=== PATIENT | female | born 1990 | race Caucasian/White ===

== ENCOUNTER 2021-04-25 01:10 | Emergency (ER) | payer BC, MEDICAID, OTHER | END 2021-04-25 02:00 | disposition home or self-care (01) | LOC: CC.ED 01:10 | DX: U07.1 COVID-19 (principal); R04.2 Hemoptysis; Z88.0 Allergy status to penicillin; Z88.2 Allergy status to sulfonamides; Z88.1 Allergy status to other antibiotic agents | CPT/HCPCS: 99283 ==

== ENCOUNTER 2021-06-26 12:37 | Emergency (ER) | payer MEDICAID | END 2021-06-26 13:50 | disposition home or self-care (01) | LOC: CC.ED 12:37 | DX: M65.4 Radial styloid tenosynovitis [de Quervain] (principal); Z88.0 Allergy status to penicillin; Z88.2 Allergy status to sulfonamides; Z88.8 Allergy status to other drugs, medicaments and biological substances | CPT/HCPCS: 73110-RT; 99283 ==

== ENCOUNTER 2021-07-18 17:03 | Emergency (ER) | payer MEDICAID ==
[2021-07-18] MEDS: Take Home: Cephalexin 500 MG Cap, 4 Cap Pack PO ONE ×2 (17:31→17:40)
[2021-07-18] MEDS ORDERED: cefTRIAXone 1 GM Vial IM ONE (17:40)
[2021-07-18] MEDS ORDERED: Take Home: Ciprofloxacin 500 MG Tab, 2 Tab Pack PO ONE (17:44)
== END 2021-07-18 18:05 | disposition home or self-care (01) ==
LOC: CC.ED 17:03
DX: N39.0 Urinary tract infection, site not specified (principal); F41.9 Anxiety disorder, unspecified; F32.A Depression, unspecified; Z79.899 Other long term (current) drug therapy; Z88.0 Allergy status to penicillin; Z88.2 Allergy status to sulfonamides; Z88.8 Allergy status to other drugs, medicaments and biological substances
CPT/HCPCS: 81001; 87086; 87088; 87186; 96372; 99283; 99284; A9270-GY; J0696

== ENCOUNTER 2021-08-26 14:02 | Emergency (ER) | payer MEDICAID ==
[2021-08-26] MEDS ORDERED: cefTRIAXone 1 GM Vial ONE (14:32)
[2021-08-26] MEDS ORDERED: cefTRIAXone 1 GM in Sodium Chloride 0.9% 50 ML IV ONE (14:52)
[2021-08-26] MEDS ORDERED: cefTRIAXone 1 GM Vial IVPUSH SCH (15:00)
[2021-08-26 15:02] LABS: CHLORIDE,CL 107 mEq/L (98-106); SODIUM,NA 140 mEq/L (136-145)
== END 2021-08-26 15:30 | disposition home or self-care (01) ==
LOC: CC.ED 14:02
DX: G40.909 Epilepsy, unspecified, not intractable, without status epilepticus (principal); N39.0 Urinary tract infection, site not specified; Z88.0 Allergy status to penicillin; Z88.2 Allergy status to sulfonamides; Z88.1 Allergy status to other antibiotic agents; Z86.16 Personal history of COVID-19
CPT/HCPCS: 36415; 80053; 85025; 96374; 99284; 99284-25; J0696

== ENCOUNTER 2021-10-25 21:34 | Emergency (ER) | payer MEDICAID ==
[2021-10-25 22:07] LABS: POTASSIUM,POC 3.3 mmol/L (3.5-4.5)
[2021-10-25] MEDS: Potassium Chloride 10 MEQ Tab.ER PO ONE (22:28)
[2021-10-25] MEDS: Doxycycline 100 MG Tab PO ONE (22:28)
== END 2021-10-25 22:58 | disposition home or self-care (01) ==
LOC: CC.ED 21:34
DX: G40.909 Epilepsy, unspecified, not intractable, without status epilepticus (principal); N39.0 Urinary tract infection, site not specified; J45.909 Unspecified asthma, uncomplicated; Z86.16 Personal history of COVID-19; Z88.0 Allergy status to penicillin; Z88.8 Allergy status to other drugs, medicaments and biological substances; Z88.2 Allergy status to sulfonamides; Z79.899 Other long term (current) drug therapy
CPT/HCPCS: 36415; 80047; 81001; 85025; 99284; A9270-GY

== ENCOUNTER 2021-10-26 22:33 | Emergency (ER) | payer MEDICAID ==
[2021-10-26] MEDS: Sodium Chloride 0.9% 1,000 ML IV ONE (22:54)
[2021-10-26 23:19] LABS: CHLORIDE,CL 109 mEq/L (98-106); ESTIMATED GFR 88 mL/min (>=60); SODIUM,NA 140 mEq/L (136-145)
== END 2021-10-26 23:54 | disposition home or self-care (01) ==
LOC: CC.ED 22:33
DX: R56.9 Unspecified convulsions (principal); H66.91 Otitis media, unspecified, right ear; Z88.0 Allergy status to penicillin; Z88.8 Allergy status to other drugs, medicaments and biological substances; Z88.2 Allergy status to sulfonamides; Z86.16 Personal history of COVID-19
CPT/HCPCS: 80053; 80201; 85025; 86140; 96360; 99284; 99284-25; J7030

== ENCOUNTER 2021-10-27 13:07 | Observation (INO) | payer MEDICAID ==
[2021-10-27 14:23] LABS: AMPHETAMINES,URINE NEGATIVE (NEGATIVE); BARBITURATES,URINE NEGATIVE (NEGATIVE); BENZODIAZEPINE,URINE NEGATIVE (NEGATIVE); MDMA (ECSTASY), URINE NEGATIVE (NEGATIVE); METHADONE,URINE NEGATIVE (NEGATIVE); METHAMPHETAMINES,URINE NEGATIVE (NEGATIVE); OPIATES,URINE NEGATIVE (NEGATIVE); OXYCODONE,URINE NEGATIVE (NEGATIVE); PHENCYCLIDINE,URINE NEGATIVE (NEGATIVE); TCA,URINE NEGATIVE (NEGATIVE)
[2021-10-27] MEDS ORDERED: Sodium Chloride 0.9% 10 ML Syringe FLUSH PRN (14:25)
[2021-10-27] MEDS ORDERED: Albuterol 0.042% 1.25 MG/3 ML Neb Soln NEB PRN (18:14)
[2021-10-27] MEDS: cefTRIAXone 1 GM Vial IVPUSH SCH (18:57)
[2021-10-27] MEDS: Sodium Chloride 0.9% 1,000 ML IV SCH (19:44)
[2021-10-27] MEDS: Acetaminophen 325 MG Tab PO PRN (19:46)
[2021-10-27] MEDS: Mirtazapine 15 MG Tab PO SCH (20:08)
[2021-10-27] MEDS: Topiramate 100 MG Tab PO SCH (20:09)
[2021-10-27] MEDS ORDERED: Ondansetron 4 MG/2 ML SDV IVPUSH PRN (20:45)
[2021-10-28] MEDS: Sodium Chloride 0.9% 1,000 ML IV SCH ×3 (03:49→19:50)
[2021-10-28] MEDS ORDERED: Fluticasone NASAL Spray 16 GM Bottle NASBOTH SCH (08:00)
[2021-10-28] MEDS ORDERED: Non-Formulary Medication 1 Each (Cranberry [Cranberry] 500 MG Cap) PO SCH (08:00)
[2021-10-28] MEDS ORDERED: Montelukast 10 MG Tab ** OWN MED PO SCH ×2 (08:00)
[2021-10-28] MEDS ORDERED: Fluticasone NASAL Spray 16 GM Bottle NASBOTH PRN (08:45)
[2021-10-28] MEDS ORDERED: LACOSAMIDE 150 MG PO ONE (10:00)
[2021-10-28] MEDS: FLUOXETINE 40 MG PO SCH (10:12)
[2021-10-28] MEDS: Montelukast 10 MG Tab PO SCH (10:12)
[2021-10-28] MEDS: Topiramate 100 MG Tab PO SCH ×2 (10:12→19:36)
[2021-10-28] MEDS: Acetaminophen 325 MG Tab PO PRN (16:21)
[2021-10-28] MEDS: Mirtazapine 15 MG Tab PO SCH (19:36)
[2021-10-28] MEDS: Lacosamide 50 MG Tab PO SCH (19:36)
[2021-10-28] MEDS: cefTRIAXone 1 GM Vial IVPUSH SCH (19:46)
[2021-10-29] MEDS: Sodium Chloride 0.9% 1,000 ML IV SCH (03:38)
[2021-10-29] MEDS: FLUOXETINE 40 MG PO SCH (08:05)
[2021-10-29] MEDS: Topiramate 100 MG Tab PO SCH (08:06)
[2021-10-29] MEDS: Montelukast 10 MG Tab PO SCH (08:06)
[2021-10-29] MEDS: Lacosamide 50 MG Tab PO SCH (08:07)
[2021-10-29] MEDS: Acetaminophen 325 MG Tab PO PRN (08:10)
[2021-10-29] MEDS ORDERED: Potassium Chloride 10 MEQ Tab.ER PO ONE (10:34)
== END 2021-10-29 12:30 | disposition home or self-care (01) ==
LOC: CC.ED 13:07 → UNDOADMOB 15:15 → CC.MS 15:15
PROVIDERS: ADMIT Nurse Practitioner Family; ATTEND Nurse Practitioner Family
DX: G40.909 Epilepsy, unspecified, not intractable, without status epilepticus (principal); H66.91 Otitis media, unspecified, right ear; N30.01 Acute cystitis with hematuria; F41.9 Anxiety disorder, unspecified; F32.A Depression, unspecified; J45.909 Unspecified asthma, uncomplicated; Z20.822 Contact with and (suspected) exposure to COVID-19; Z88.0 Allergy status to penicillin; Z88.8 Allergy status to other drugs, medicaments and biological substances; Z88.2 Allergy status to sulfonamides; Z79.899 Other long term (current) drug therapy; Z86.16 Personal history of COVID-19
CPT/HCPCS: 36415; 70450; 71046; 80053; 80305-QW; 81001; 82550; 84484; 85025; 93005; 96374; 96375; 96376; 99217; 99220; 99225; 99285-25; A9270-GY; G0378; J0696; J2405; J3360; J7030; U0002

== ENCOUNTER 2021-11-17 13:48 | Emergency (ER) | payer MEDICAID | END 2021-11-17 14:49 | disposition home or self-care (01) | LOC: CC.ED 13:48 | DX: G40.909 Epilepsy, unspecified, not intractable, without status epilepticus (principal); J45.909 Unspecified asthma, uncomplicated; Z88.8 Allergy status to other drugs, medicaments and biological substances; Z88.0 Allergy status to penicillin; Z88.2 Allergy status to sulfonamides; Z79.899 Other long term (current) drug therapy; Z86.16 Personal history of COVID-19 | CPT/HCPCS: 99283; 99284 ==

== ENCOUNTER 2021-11-27 22:30 | Emergency (ER) | payer MEDICAID ==
[2021-11-27 23:29] LABS: CHLORIDE,CL 111 mEq/L (98-106); ESTIMATED GFR 77 mL/min (>=60); SODIUM,NA 146 mEq/L (136-145)
[2021-11-28] MEDS ORDERED: Take Home: Ciprofloxacin 500 MG Tab, 2 Tab Pack PO ONE (00:10)
== END 2021-11-28 00:27 | disposition home or self-care (01) ==
LOC: CC.ED 22:30
DX: G40.909 Epilepsy, unspecified, not intractable, without status epilepticus (principal); N30.00 Acute cystitis without hematuria; F41.9 Anxiety disorder, unspecified; F32.A Depression, unspecified
CPT/HCPCS: 36415; 80053; 80307; 82550; 83735; 85025; 99284; A9270-GY

== ENCOUNTER 2021-12-02 20:07 | Emergency (ER) | payer MEDICAID ==
[2021-12-02] MEDS ORDERED: Sodium Chloride 0.9% 1,000 ML IV ONE (20:32)
[2021-12-02 20:56] LABS: BARBITURATES,URINE NEGATIVE (NEGATIVE); BENZODIAZEPINE,URINE POSITIVE (NEGATIVE); MDMA (ECSTASY), URINE NEGATIVE (NEGATIVE); METHADONE,URINE NEGATIVE (NEGATIVE); METHAMPHETAMINES,URINE NEGATIVE (NEGATIVE); OPIATES,URINE NEGATIVE (NEGATIVE)
[2021-12-02 20:57] LABS: AMPHETAMINES,URINE POSITIVE (NEGATIVE); OXYCODONE,URINE NEGATIVE (NEGATIVE); PHENCYCLIDINE,URINE NEGATIVE (NEGATIVE); TCA,URINE NEGATIVE (NEGATIVE)
== END 2021-12-02 22:10 | disposition home or self-care (01) ==
LOC: CC.ED 20:07
DX: G40.909 Epilepsy, unspecified, not intractable, without status epilepticus (principal); J45.909 Unspecified asthma, uncomplicated; Z88.8 Allergy status to other drugs, medicaments and biological substances; Z88.0 Allergy status to penicillin; Z88.2 Allergy status to sulfonamides; Z79.899 Other long term (current) drug therapy; Z86.16 Personal history of COVID-19
CPT/HCPCS: 36415; 80053; 80305-QW; 81001; 83735; 85025; 96360; 99284; 99284-25; J7030

== ENCOUNTER 2021-12-03 14:30 | Emergency (ER) | payer MEDICAID | END 2021-12-03 17:40 | disposition home or self-care (01) | LOC: CC.ED 14:30 | DX: G40.409 Other generalized epilepsy and epileptic syndromes, not intractable, without status epilepticus (principal); Z88.0 Allergy status to penicillin; Z88.2 Allergy status to sulfonamides; Z88.8 Allergy status to other drugs, medicaments and biological substances; Z88.5 Allergy status to narcotic agent | CPT/HCPCS: 71046; 81001; 99284 ==

== ENCOUNTER 2022-01-09 19:45 | Emergency (ER) | payer MEDICAID ==
[2022-01-09] MEDS ORDERED: Midazolam 1 MG/ML 2 ML SDV ONE ×3 (20:34→20:36)
== END 2022-01-09 21:35 | disposition home or self-care (01) ==
LOC: CC.ED 19:45
DX: G40.909 Epilepsy, unspecified, not intractable, without status epilepticus (principal); Z88.0 Allergy status to penicillin; Z88.1 Allergy status to other antibiotic agents; Z88.8 Allergy status to other drugs, medicaments and biological substances; Z88.2 Allergy status to sulfonamides; Z86.16 Personal history of COVID-19
CPT/HCPCS: 36415; 80053; 82550; 83735; 84443; 85025; 99284

== ENCOUNTER 2022-01-31 21:25 | Emergency (ER) | payer MEDICAID | END 2022-01-31 21:53 | disposition home or self-care (01) | LOC: CC.ED 21:25 | DX: S61.211A Laceration without foreign body of left index finger without damage to nail, initial encounter (principal); J45.909 Unspecified asthma, uncomplicated; Z88.8 Allergy status to other drugs, medicaments and biological substances; Z88.0 Allergy status to penicillin; Z88.2 Allergy status to sulfonamides; Z79.899 Other long term (current) drug therapy; Z86.16 Personal history of COVID-19; W26.0XXA Contact with knife, initial encounter | CPT/HCPCS: 12001; 99282; 99283 ==

== ENCOUNTER 2022-03-11 21:43 | Emergency (ER) | payer MEDICAID ==
[2022-03-11 22:15] VITALS: BP 130/79; PULSE 69
[2022-03-11] MEDS: Iopamidol 755 Mg/ML 100 ML Bottle IVPUSH ONE (23:56)
[2022-03-12] MEDS: Potassium Chloride 10 MEQ Tab.ER PO ONE (00:48)
== END 2022-03-12 00:58 | disposition home or self-care (01) ==
LOC: CC.ED 21:43
DX: I73.00 Raynaud's syndrome without gangrene (principal); J45.909 Unspecified asthma, uncomplicated; Z88.1 Allergy status to other antibiotic agents; Z88.0 Allergy status to penicillin; Z88.8 Allergy status to other drugs, medicaments and biological substances; Z88.2 Allergy status to sulfonamides; Z79.899 Other long term (current) drug therapy
CPT/HCPCS: 36415; 73206-RT; 80053; 81001; 81025; 82550; 85025; 85651; 99284; A9270-GY; Q9967

== ENCOUNTER 2022-08-21 12:15 | Emergency (ER) | payer MEDICAID ==
[2022-08-21 12:42] LABS: BASOPHILS ABSOLUTE AUTO 0.04 10^3/uL (0.00-0.50); BASOPHILS PERCENT AUTO 0.6 % (0-1); EOSINOPHILS ABSOLUTE AUTO 0.18 10^3/uL (0.00-1.50); EOSINOPHILS PERCENT AUTO 2.9 % (0-6); HEMATOCRIT 48.7 % (37.0-47.0); HEMOGLOBIN 16.4 g/dL (12.0-16.0); IMMATURE GRAN ABSOLUTE AUTO 0.01 10^3/uL (0.00-0.49); IMMATURE GRAN PERCENT AUTO 0.2 % (0.0-4.9); LYMPHOCYTES ABSOLUTE AUTO 1.79 10^3/uL (0.60-5.00); LYMPHOCYTES PERCENT AUTO 28.9 % (24-44); MEAN CORPUSCULAR HEMOGLOBIN 30.1 pg (27.0-32.0); MEAN CORPUSCULAR HGB CONC 33.7 g/dL (32.0-36.0); MEAN CORPUSCULAR VOLUME 89.5 fL (83.0-97.0); MONOCYTES ABSOLUTE AUTO 0.38 10^3/uL (0.00-1.50); MONOCYTES PERCENT AUTO 6.1 % (0-10); NEUTROPHILS ABSOLUTE AUTO 3.79 x10^3/uL (1.80-8.00); NEUTROPHILS PERCENT AUTO 61.3 % (41-71); PLATELET COUNT,PLT 181 10^3/uL (150-400); RED BLOOD CELL COUNT 5.44 x10^6/uL (4.00-5.50); WHITE BLOOD CELL COUNT,WBC 6.2 10^3/uL (4.0-11.0)
[2022-08-21 12:50] LABS: APPEARANCE,URINE SLIGHTLY CLOUDY (CLEAR); BILIRUBIN,URINE NEGATIVE (NEGATIVE); COLOR,URINE YELLOW (YELLOW); GLUCOSE,URINE NEGATIVE (NEGATIVE); KETONES,URINE NEGATIVE (NEGATIVE); LEUKOCYTE ESTERASE,URINE NEGATIVE (NEGATIVE); NITRITE,URINE NEGATIVE (NEGATIVE); OCCULT BLOOD,URINE NEGATIVE (NEGATIVE); PROTEIN,URINE NEGATIVE (NEGATIVE); UROBILINOGEN,URINE 0.2 EU/dL (0.2-1.0)
[2022-08-21 12:55] LABS: ALANINE AMINOTRANSFERASE,ALT 53 U/L (12-78); ALBUMIN 4.3 g/dL (3.4-5.0); ALKALINE PHOSPHATASE 51 U/L (46-116); ASPARTATE AMNIOTRANSFERASE,AST 28 U/L (15-37); BILIRUBIN TOTAL 0.3 mg/dL (0.0-1.0); BLOOD UREA NITROGEN,BUN 21 mg/dL (7-18); CALCIUM 9.2 mg/dL (8.4-10.1); CARBON DIOXIDE,CO2 29 mmol/L (21-32); CHLORIDE,CL 100 mEq/L (98-106); EST CRCL DRUG DOSING (CG) 61.51 mL/min; GLUCOSE RANDOM 86 mg/dL (75-99); POTASSIUM,K 4.3 mEq/L (3.5-5.0); PROTEIN TOTAL,TP 7.6 g/dL (6.4-8.2); SODIUM,NA 137 mEq/L (136-145)
[2022-08-21 12:57] LABS: C-REACTIVE PROTEIN < 0.2 mg/dL (0.2-0.8); ESTIMATED GFR 77 mL/min (>=60)
== END 2022-08-21 13:40 | disposition home or self-care (01) ==
LOC: CC.ED 12:15
DX: G40.909 Epilepsy, unspecified, not intractable, without status epilepticus (principal); K80.20 Calculus of gallbladder without cholecystitis without obstruction; Z88.0 Allergy status to penicillin; Z88.8 Allergy status to other drugs, medicaments and biological substances; Z88.2 Allergy status to sulfonamides; Z86.16 Personal history of COVID-19
CPT/HCPCS: 36415; 80053; 81003; 85025; 86140; 99284; 99285

== ENCOUNTER 2022-08-26 22:42 | Emergency (ER) | payer MEDICAID ==
[2022-08-26 23:27] LABS: BASOPHILS ABSOLUTE AUTO 0.04 10^3/uL (0.00-0.50); BASOPHILS PERCENT AUTO 0.7 % (0-1); EOSINOPHILS ABSOLUTE AUTO 0.11 10^3/uL (0.00-1.50); EOSINOPHILS PERCENT AUTO 1.8 % (0-6); HEMATOCRIT 38.6 % (37.0-47.0); HEMOGLOBIN 13.5 g/dL (12.0-16.0); IMMATURE GRAN ABSOLUTE AUTO 0.01 10^3/uL (0.00-0.49); IMMATURE GRAN PERCENT AUTO 0.2 % (0.0-4.9); LYMPHOCYTES ABSOLUTE AUTO 1.53 10^3/uL (0.60-5.00); MEAN CORPUSCULAR VOLUME 88.7 fL (83.0-97.0); MONOCYTES ABSOLUTE AUTO 0.46 10^3/uL (0.00-1.50); MONOCYTES PERCENT AUTO 7.5 % (0-10); NEUTROPHILS ABSOLUTE AUTO 3.97 x10^3/uL (1.80-8.00); NEUTROPHILS PERCENT AUTO 64.8 % (41-71); PLATELET COUNT,PLT 155 10^3/uL (150-400); RED BLOOD CELL COUNT 4.35 x10^6/uL (4.00-5.50); WHITE BLOOD CELL COUNT,WBC 6.1 10^3/uL (4.0-11.0)
[2022-08-26] MEDS ORDERED: Sodium Chloride 0.9% 1,000 ML IV ONE (23:32)
[2022-08-26 23:46] LABS: ALBUMIN 3.4 g/dL (3.4-5.0); BILIRUBIN TOTAL 0.2 mg/dL (0.0-1.0); CALCIUM 8.3 mg/dL (8.4-10.1); CREATININE 0.9 mg/dL (0.6-1.0); EST CRCL DRUG DOSING (CG) 68.34 mL/min; POTASSIUM,K 3.5 mEq/L (3.5-5.0); PROTEIN TOTAL,TP 5.9 g/dL (6.4-8.2)
[2022-08-26] MEDS ORDERED: Acetaminophen 325 MG Tab PO ONE (23:56)
[2022-08-27 00:34] LABS: APPEARANCE,URINE SLIGHTLY CLOUDY (CLEAR); BILIRUBIN,URINE NEGATIVE (NEGATIVE); COLOR,URINE YELLOW (YELLOW); GLUCOSE,URINE NEGATIVE (NEGATIVE); KETONES,URINE NEGATIVE (NEGATIVE); LEUKOCYTE ESTERASE,URINE NEGATIVE (NEGATIVE); NITRITE,URINE NEGATIVE (NEGATIVE); OCCULT BLOOD,URINE NEGATIVE (NEGATIVE); PROTEIN,URINE NEGATIVE (NEGATIVE); UROBILINOGEN,URINE 0.2 EU/dL (0.2-1.0)
== END 2022-08-27 00:55 | disposition home or self-care (01) ==
LOC: CC.ED 22:42
DX: R56.9 Unspecified convulsions (principal); J45.909 Unspecified asthma, uncomplicated; Z86.16 Personal history of COVID-19; Z98.890 Other specified postprocedural states; Z88.1 Allergy status to other antibiotic agents; Z88.0 Allergy status to penicillin; Z88.2 Allergy status to sulfonamides; Z88.8 Allergy status to other drugs, medicaments and biological substances; Z79.899 Other long term (current) drug therapy
CPT/HCPCS: 36415; 80053; 81003; 81025; 82150; 82947; 83690; 85025; 96360; 99284; 99284-25; A9270-GY; J7030

== ENCOUNTER 2022-09-15 20:32 | Emergency (ER) | payer MEDICAID | END 2022-09-15 20:50 | disposition home or self-care (01) | LOC: CC.ED 20:32 | DX: G89.18 Other acute postprocedural pain (principal); J45.909 Unspecified asthma, uncomplicated; Z88.1 Allergy status to other antibiotic agents; Z88.0 Allergy status to penicillin; Z88.2 Allergy status to sulfonamides; Z88.8 Allergy status to other drugs, medicaments and biological substances | CPT/HCPCS: 99283 ==

== ENCOUNTER 2022-11-10 22:58 | Emergency (ER) | payer MEDICAID ==
[2022-11-10 23:12] VITALS: BP 117/78; PULSE 53
[2022-11-10 23:18] LABS: APPEARANCE,URINE SLIGHTLY CLOUDY (CLEAR); BILIRUBIN,URINE NEGATIVE (NEGATIVE); COLOR,URINE YELLOW (YELLOW); GLUCOSE,URINE NEGATIVE (NEGATIVE); KETONES,URINE TRACE mg/dL (NEGATIVE); LEUKOCYTE ESTERASE,URINE TRACE (NEGATIVE); NITRITE,URINE NEGATIVE (NEGATIVE); OCCULT BLOOD,URINE MODERATE (NEGATIVE); PROTEIN,URINE >=300 mg/dL (NEGATIVE); UROBILINOGEN,URINE 0.2 EU/dL (0.2-1.0)
[2022-11-10 23:26] LABS: BACTERIA,URINE MODERATE /HPF (NOT SEEN); EPITHELIAL CELLS,URINE FEW /HPF (NOT SEEN); RBC,URINE 50-75 /HPF (0-5); WBC,URINE 40-50 /HPF (0-5)
[2022-11-10] MEDS: Take Home: Nitrofurantoin Monohydrate/Macrocrystalline 100 MG, 6 Cap Pack PO ONE (23:30)
[2022-11-10] MEDS: Take Home: Cefuroxime 250 MG Tab, 2 Tab Pack PO ONE (23:37)
== END 2022-11-10 23:43 | disposition home or self-care (01) ==
LOC: CC.ED 22:58
DX: N30.01 Acute cystitis with hematuria (principal); J45.909 Unspecified asthma, uncomplicated; Z88.1 Allergy status to other antibiotic agents; Z88.0 Allergy status to penicillin; Z88.8 Allergy status to other drugs, medicaments and biological substances; Z79.51 Long term (current) use of inhaled steroids; Z86.16 Personal history of COVID-19
CPT/HCPCS: 81001; 87086; 87088; 87186; 99284; A9270-GY

== ENCOUNTER 2023-01-16 19:07 | Emergency (ER) | payer MEDICAID ==
[2023-01-16 20:10] LABS: BASOPHILS ABSOLUTE AUTO 0.04 10^3/uL (0.00-0.50); BASOPHILS PERCENT AUTO 0.7 % (0-1); EOSINOPHILS ABSOLUTE AUTO 0.16 10^3/uL (0.00-1.50); EOSINOPHILS PERCENT AUTO 2.7 % (0-6); HEMATOCRIT 48.4 % (37.0-47.0); HEMOGLOBIN 17.1 g/dL (12.0-16.0); IMMATURE GRAN ABSOLUTE AUTO 0.07 10^3/uL (0.00-0.49); IMMATURE GRAN PERCENT AUTO 1.2 % (0.0-4.9); LYMPHOCYTES ABSOLUTE AUTO 1.98 10^3/uL (0.60-5.00); LYMPHOCYTES PERCENT AUTO 33.3 % (24-44); MEAN CORPUSCULAR HEMOGLOBIN 31.7 pg (27.0-32.0); MEAN CORPUSCULAR HGB CONC 35.3 g/dL (32.0-36.0); MEAN CORPUSCULAR VOLUME 89.6 fL (83.0-97.0); MONOCYTES ABSOLUTE AUTO 0.41 10^3/uL (0.00-1.50); MONOCYTES PERCENT AUTO 6.9 % (0-10); NEUTROPHILS ABSOLUTE AUTO 3.29 x10^3/uL (1.80-8.00); NEUTROPHILS PERCENT AUTO 55.2 % (41-71); PLATELET COUNT,PLT 141 10^3/uL (150-400)
[2023-01-16 20:19] LABS: ALANINE AMINOTRANSFERASE,ALT 14 U/L (12-78); ALBUMIN 3.7 g/dL (3.4-5.0); ALKALINE PHOSPHATASE 42 U/L (46-116); ASPARTATE AMNIOTRANSFERASE,AST 15 U/L (15-37); BILIRUBIN TOTAL 0.3 mg/dL (0.0-1.0); BLOOD UREA NITROGEN,BUN 16 mg/dL (7-18); CALCIUM 8.9 mg/dL (8.4-10.1); CARBON DIOXIDE,CO2 27 mmol/L (21-32); CHLORIDE,CL 102 mEq/L (98-106); EST CRCL DRUG DOSING (CG) 60.95 mL/min; GLUCOSE RANDOM 76 mg/dL (75-99); POTASSIUM,K 3.6 mEq/L (3.5-5.0); SODIUM,NA 141 mEq/L (136-145)
[2023-01-16 20:20] LABS: C-REACTIVE PROTEIN < 0.30 mg/dL (<=0.30); ESTIMATED GFR 77 mL/min (>=60)
[2023-01-16 20:20] LABS: APPEARANCE,URINE SLIGHTLY CLOUDY (CLEAR); BILIRUBIN,URINE NEGATIVE (NEGATIVE); COLOR,URINE YELLOW (YELLOW); GLUCOSE,URINE NEGATIVE (NEGATIVE); KETONES,URINE NEGATIVE (NEGATIVE); LEUKOCYTE ESTERASE,URINE NEGATIVE (NEGATIVE); NITRITE,URINE NEGATIVE (NEGATIVE); OCCULT BLOOD,URINE NEGATIVE (NEGATIVE); PH,URINE 6.5 (4.5-8.0); PROTEIN,URINE NEGATIVE (NEGATIVE); UROBILINOGEN,URINE 0.2 EU/dL (0.2-1.0)
[2023-01-16 20:23] LABS: AMPHETAMINES,URINE NEGATIVE (NEGATIVE); BARBITURATES,URINE NEGATIVE (NEGATIVE); BENZODIAZEPINE,URINE NEGATIVE (NEGATIVE); MDMA (ECSTASY), URINE NEGATIVE (NEGATIVE); METHADONE,URINE NEGATIVE (NEGATIVE); METHAMPHETAMINES,URINE NEGATIVE (NEGATIVE); OPIATES,URINE NEGATIVE (NEGATIVE); OXYCODONE,URINE NEGATIVE (NEGATIVE); PHENCYCLIDINE,URINE NEGATIVE (NEGATIVE); TCA,URINE NEGATIVE (NEGATIVE)
== END 2023-01-16 21:15 | disposition critical access hospital (66) ==
LOC: CC.ED 19:07
DX: T42.6X2A Poisoning by other antiepileptic and sedative-hypnotic drugs, intentional self-harm, initial encounter (principal); J45.909 Unspecified asthma, uncomplicated; Z86.16 Personal history of COVID-19; Z98.890 Other specified postprocedural states; Z88.8 Allergy status to other drugs, medicaments and biological substances; Z88.1 Allergy status to other antibiotic agents; Z88.0 Allergy status to penicillin; Z88.2 Allergy status to sulfonamides; Z79.899 Other long term (current) drug therapy
CPT/HCPCS: 36415; 80053; 80305-QW; 80307; 81003; 81025; 85025; 86140; 99284; 99285

== ENCOUNTER 2024-03-22 20:02 | Emergency (ER) | payer MEDICAID ==
[2024-03-22] MEDS: methylPREDNISolone Sodium Succinate 40 MG/1 ML SDV IM ONE (20:25)
== END 2024-03-22 20:44 | disposition home or self-care (01) ==
LOC: CC.ED 20:02
DX: J06.9 Acute upper respiratory infection, unspecified (principal); J45.901 Unspecified asthma with (acute) exacerbation; F17.290 Nicotine dependence, other tobacco product, uncomplicated; Z86.16 Personal history of COVID-19; Z79.51 Long term (current) use of inhaled steroids; Z88.0 Allergy status to penicillin; Z88.2 Allergy status to sulfonamides; Z88.8 Allergy status to other drugs, medicaments and biological substances; Z91.048 Other nonmedicinal substance allergy status
CPT/HCPCS: 96372; 99284; J2919